=== PATIENT | female | born 1990 | race Hispanic/Latino ===

== ENCOUNTER 2023-10-30 11:03 | Emergency (ER) | payer OTHER, SELFPAY ==
[2023-10-30 11:05] VITALS: BP 124/89
--- NOTE | 2023-10-30 11:20 | ED.GENMED ---
History of Present Illness
General
Chief Complaint: Abdominal Symptoms
Time Seen by Provider: 10/30/23 11:20
Travel History
Have you had any contact with someone who has COVID-19?: No
Do you have any symptoms of coronavirus? Fever > 100 degrees, chills, cough, shortness of breath, sore throat, loss of taste or smell, muscle aches, or headache?: No
History of Present Illness
History of Present Illness:
HPI: Patient presents with abdominal pain sent from urgent care. She has had nausea and vomiting for the past week. She has a history of sleeve gastrectomy in 2017. She did try some Zofran recently given to her by her bariatric surgeon. She was
recently on semaglutide and states that the doctor gave her 1 mg of 0.25 mg dose. It was used instead of Zepbound as there apparently is a national shortage Zepbound.
EXAM:
GENERAL: Well appearing in no distress
HEENT: Moist oral mucosa
CARDIOVASCULAR: No murmurs, normal heart rate, regular rhythm, No chest wall tenderness
PULMONARY: No respiratory distress, breath sounds are clear and equal
ABDOMEN: Soft with no peritoneal signs, mild upper abdominal tenderness, no significant lower tenderness
NEUROLOGIC: Excellent strength all extremities, no coordination deficits
PSYCHIATRIC: Appropriate mental status, normal insight and judgement
EXTREMITIES: Nontender, no edema, moves all extremities equally
SKIN: No rash, no lesions
TIME OF INITIAL ENCOUNTER: 11:30 AM
NUMBER AND COMPLEXITY OF PROBLEMS ADDRESSED AT THE ENCOUNTER
� Chronic conditions affecting care: Anxiety, has had gastrectomy
� Acute Exacerbation and/or Progression of Chronic Illness: This is an acute problem
� Differential Diagnosis includes: Medication related side effect, bowel obstruction, appendicitis, cholecystitis
AMOUNT AND/OR COMPLEXITY OF DATA TO BE REVIEWED AND ANALYZED
� I performed an independent evaluation of and my interpretation is:
EKG:
CT: Personally reviewed CT imaging and agree with radiologist interpretation, there is no bowel obstruction normal appendix visualized
X-rays:
Laboratory Studies: White count hemoglobin normal, chemistries unremarkable including LFTs and lipase, hCG negative, urinalysis without evidence for
Other:
� Review of other/old records: No old records available for review
� Clinical information was obtained by an independent historian: None needed
� Prescriptions/Medications Considered but not given:
� Further testing considered but not performed:
RISK OF COMPLICATIONS AND/OR MORBIDITY OR MORTALITY OF PATIENT MANAGEMENT
� Social determinants of health affecting care: Lives at home
� Discussion with other providers:
� Escalation of care including admission/observation vs risk of discharge considered: The patient was given IV fluids, Pepcid, and Zofran. CT imaging shows no clear acute findings including no sign of bowel obstruction there is
no sign of appendicitis. On reassessment at 1:50 PM, the patient appears fairly comfortable. She is already taking Pepcid and omeprazole as outpatient. She already has Zofran. I also gave her contact information for GI and I informed her of the
IUD was atypical position and recommended she use an alternate form of control until reviewed by gynecology.
Phy Exam
Physical Exam
Physical Exam:
See HPI
Course
Orders/Labs/Results
Orders:
Orders
10/30/23 11:21
Add On- LAB Urgent
Tests Added?: hcg serum screen
10/30/23 11:25
Iohexol [Omnipaque] See Protocol PO NOW STA
10/30/23 11:26
CT Abd/pel W Iv And Oral Contr Urgent
Comment:
Reason For Exam: upper / right, h/o sleeve gastrectomy
10/30/23 11:27
0.9% Sodium Chloride 1000 ml [Nss] 1,000 ml IV BOLUS
Famotidine [Pepcid] 20 mg IV NOW STA
Ondansetron Injectable [Zofran] 4 mg IV NOW STA
10/30/23 11:28
Complete Blood Count/With Diff Urgent
Comprehensive Metabolic Panel Urgent
HCG, Serum Qualitative Screen Urgent
Comment: ADD ON
Lipase Urgent
10/30/23 11:47
Urine Culture Reflexed from UA [Urinalysis Reflex To Culture] Urgent
Date Specimen was Collected: 10/30/23
Time Specimen was Collected: 11:10
Urine Microscopic Reflex Cult Urgent
Urine Culture Urgent
TAL Source: U
Specimen Description:
Date Specimen was Collected: 10/30/23
Time Specimen was Collected: 11:10
Abnormal Lab Results
10/30/23 10/30/23
11:28 11:47
Absolute Neuts (auto) 6.9 H 10^3/uL
(1.4-6.5)
Sodium 132 L mmol/L
(135-145)
Chloride 94 L mmol/L
(98-107)
Urine Ketones 1+ A
(Negative)
Leukocyte Esterase Rfl 1+ A
(Negative)
10/30/23 11:28
10/30/23 11:28
Vital Signs
Initial and Last Documented VS:
Initial Vital Signs
Temp Pulse Resp BP Pulse Ox
98.3 F 83 20 124/89 94
10/30/23 11:05 10/30/23 11:05 10/30/23 11:05 10/30/23 11:05 10/30/23 11:05
Last Documented Vital Signs
Temp Pulse Resp BP Pulse Ox
98.3 F 83 20 124/89 94
10/30/23 11:05 10/30/23 11:05 10/30/23 11:05 10/30/23 11:05 10/30/23 11:05
*Critical Care Note
Total Time (30-74mins, 75-104mins- exclusive of procedures): Not Applicable
ED Attending Note
-
Portions of this chart may have been created with voice recognition software.� Occasional wrong word or��sound alike� substitutions may have occurred due to the inherent limitations of voice recognition software.
Discharge Plan
Departure
Patient Disposition: Home (Routine Discharge)
Date of Disposition: 10/30/23
Time of Disposition: 13:48
Patient with high blood pressure during this ER visit?: Yes
Discharge Problem:
Abdominal pain
Instructions: Abdominal Pain
Referrals:
Alison Prado MD [Family Provider] -
Anastasiya Garcia MD [Active] - Follow up in 2-3 days
Activity Restrictions/Additional Instructions:
White blood cell count is normal, testing is negative, liver numbers and pancreas numbers are both normal, renal function is normal. Urinalysis does not show any clear sign for infection. CT imaging shows a normal gallbladder, a tiny
right lower lobe of the liver area of most likely a cyst�this would not be the cause of your pain. IUD shows left-sided ovarian cyst measuring 1.2 cm (small). In the uterus the IUD has 'a somewhat atypical configuration, with a T oriented towards
the lower uterine segment rather than fundus'�I recommend you follow-up with your opthalmic tech. I have also given the contact information for local GI doctor, Dr. Garcia.
Interventions
Interventions:
*Risk Screen - Suicide Last Done: 10/30/23 11:05
*General Assessment Last Done: 10/30/23 11:05
ED- Fall Risk Assessment Last Done: 10/30/23 11:23
[facility] Assessment Last Done: 10/30/23 11:23
Discharge Date and Time
Print Language: SAMI
[2023-10-30 11:22] VITALS: BMI 29.6
[2023-10-30] MEDS: OMNIPAQUE 50 ML PO (11:34)
[2023-10-30] MEDS: NSS 1000 IV (11:34)
[2023-10-30] MEDS: PEPCID 20 MG IV (11:34)
[2023-10-30] MEDS: ZOFRAN 4 MG IV (11:34)
[2023-10-30 11:47] LABS: % Basophils 0.7 % (0-2); % Immature Granulocytes 0.4 % (0-0.5); % Lymphocytes 22.6 % (20.5-51.1); % Monocytes 6.1 % (1.7-9.3); % Neutrophils 69.2 % (42.2-75.2); Absolute Basophils 0.1 10^3/uL (0-0.2); Absolute Eosinophils 0.1 10^3/uL (0-0.7); Absolute Lymphocytes 2.3 10^3/uL (1.2-3.4); Absolute Monocytes 0.6 10^3/uL (0.1-0.6); Absolute Neutrophils 6.9 10^3/uL (1.4-6.5); Hematocrit 44.6 % (37.0-47.0); Hemoglobin 15.1 g/dL (12.0-16.0); Mean Corp Hgb Conc. 33.9 g/dL (33.0-37.0); Mean Corpuscular Hgb 28.2 pg (27.0-31.0); Mean Corpuscular Volume 83.2 fL (81.0-99.0); Mean Platelet Volume 9.5 fL (7.4-10.4); Nucleated Red Blood Cells % 0 %; Platelet Count 275 10^3/uL (130-400); Red Blood Cell Count 5.36 10^6/uL (4.20-5.40); Red Cell Dist. Width 12.4 % (11.5-14.5)
[2023-10-30 11:50] LABS: HCG, Serum Qualitative Screen Negative
[2023-10-30 12:00] LABS: ALT (SGPT) 16 U/L (0-35); AST (SGOT) 23 U/L (14-36); Albumin 4.6 g/dl (3.5-5.0); Alkaline Phosphatase 64 U/L (38-126); Blood Urea Nitrogen 10 mg/dl (7-17); Calcium 9.7 mg/dl (8.4-10.2); Carbon Dioxide 27 mmol/L (22-30); Chloride 94 mmol/L (98-107); Estimated Creatinine Clearance 122 ml/min; Glucose 96 mg/dl (70-99); Lipase 73 U/L (23-300); Potassium 4.1 mmol/L (3.5-5.1); Sodium 132 mmol/L (135-145); Total Bilirubin 0.8 mg/dl (0.2-1.3); Total Protein 7.7 g/dl (6.3-8.2); eGFR > 60.00
[2023-10-30 12:05] LABS: Urine Albumin Negative (Neg - Trace); Urine Bilirubin Negative (Negative); Urine Character Clear (Clear); Urine Color Yellow; Urine Glucose Negative (Negative); Urine Ketone 1+ (Negative); Urine Leukocyte 1+ (Negative); Urine Nitrite Negative (Negative); Urine Occult Blood Negative (Negative); Urine Urobilinogen Negative (Neg - 1+); Urine pH 6.5 (5.0-9.0)
[2023-10-30 12:19] LABS: Urine Squamous Cell >30 /LPF (Few)
[2023-10-30 12:20] LABS: Urine Red Blood Cell 0-2 /HPF (0-2)
== END 2023-10-30 14:00 | disposition home or self-care (01) ==
LOC: EMR 11:03
PROVIDERS: EMERGENCY PHYSICIAN Emergency Medicine; FAMILY PHYSICIAN Family Medicine
DX: R10.9 Unspecified abdominal pain (principal); R03.0 Elevated blood-pressure reading, without diagnosis of hypertension
CPT/HCPCS: 99285; 96374; 96375; 96361; 74177; 80053; 81003; 81015; 83690; 84703; 85025; 87086; Q9967

== ENCOUNTER 2024-10-02 09:13 | Emergency (ER) | payer BC, SELFPAY ==
[2024-10-02 09:16] VITALS: BP 122/81
--- NOTE | 2024-10-02 10:02 | ED.GENMED ---
History of Present Illness
General
Chief Complaint: Musculo-Skeletal Complaint
Source: patient
Time Seen by Provider: 10/02/24 09:51
History of Present Illness
History of Present Illness:
33-year-old female presents emergency room complaining of pain of the outside of her right foot. Patient slipped on wet grass while at a resort in the [facility] [place] 4 days ago. She immediately developed pain in the right foot. She was having
difficulty walking on it. She sought some care there at the resort and she was given a walking stick and an Charlie bandage. She denies any other injuries. Patient has been taking Tylenol for pain. She has been told not to take NSAIDs due to having
gastric sleeve procedure.
Phy Exam
Physical Exam
Physical Exam:
General: Awake, Alert, Oriented X3. No acute distress.
Vitals: unremarkable
Head: Atraumatic
Eyes: Pupils equal, EOMI
Neuro: Nonfocal
Skin: Warm, dry, no rash
Extremities: pulses equal b/l, swelling noted right foot particular lateral aspect. Tender to palpation along the proximal fifth metatarsal. No tenderness palpation over the medial or lateral malleolus. Range of motion intact of the digits.
Sensation intact.
Course
Orders/Labs/Results
Orders:
Orders
10/02/24 09:21
CR Foot - Right Min 3 Views Urgent
Comment:
Reason For Exam: pain , injury
10/02/24 09:59
Splints/Slings/Crut- Treatment ONCE
Crutches: Yes
Location: Right
Type of Splint: Short Leg
Vital Signs
Initial and Last Documented VS:
Initial Vital Signs
Temp Pulse Resp BP Pulse Ox
98.4 F 71 16 122/81 100
10/02/24 09:16 10/02/24 09:16 10/02/24 09:16 10/02/24 09:16 10/02/24 09:16
Last Documented Vital Signs
Temp Pulse Resp BP Pulse Ox
98.4 F 71 16 122/81 100
10/02/24 09:16 10/02/24 09:16 10/02/24 09:16 10/02/24 09:16 10/02/24 09:16
MDM/Problems Addressed
Differential Diagnosis Includes:
Fifth metatarsal fracture, foot sprain,
MDM/Problems Addressed:
Imaging confirms the presence of a fracture at the base of the fifth metatarsal. We will place her in a splint and provide crutches so that she can be nonweightbearing until she follows up with podiatry/Ortho. The location of this fracture seems
low risk for complication but we will keep her nonweightbearing until she follows up. Of note the patient has been ambulating since Thursday.
*Radiology
Radiology exam reviewed: preliminary read by ED provider (Fracture of the base of the fifth metatarsal on my review of the x-ray)
*Pulse Oximetry
Patient hypoxic: no
*Critical Care Note
Total Time (30-74mins, 75-104mins- exclusive of procedures): Not Applicable
ED Attending Note
-
Portions of this chart may have been created with voice recognition software.� Occasional wrong word or��sound alike� substitutions may have occurred due to the inherent limitations of voice recognition software.
Discharge Plan
Departure
Patient Disposition: Home (Routine Discharge)
Date of Disposition: 10/02/24
Time of Disposition: 10:02
Patient with high blood pressure during this ER visit?: No
Condition: Good
Discharge Problem:
Fracture of fifth metatarsal bone of right foot
Instructions: Splint Care, Foot Fracture ED, How to use crutches
Prescriptions:
New
oxycodone 5 mg tablet
5 mg PO Q6H PRN (Reason: Pain) Qty: 12 0RF
Referrals:
Alison Prado MD [Family Provider] -
Massimo Powers DPM [Active] -
Discharge Date and Time
Print Language: [place]
== END 2024-10-02 10:41 | disposition home or self-care (01) ==
LOC: EMR 09:13
PROVIDERS: EMERGENCY PHYSICIAN Emergency Medicine; FAMILY PHYSICIAN Family Medicine
DX: S92.354A Nondisplaced fracture of fifth metatarsal bone, right foot, initial encounter for closed fracture (principal); X50.1XXA Overexertion from prolonged static or awkward postures, initial encounter; Y92.89 Other specified places as the place of occurrence of the external cause; Z98.84 Bariatric surgery status
CPT/HCPCS: 99283; 29515; 73630

== ENCOUNTER → 2024-10-08 09:48 | Outpatient (REF) | payer BC, SELFPAY ==
[2024-10-08 11:11] LABS: % Basophils 1.1 % (0-2); % Eosinophils 9.2 % (0-6); % Lymphocytes 32.5 % (20.5-51.1); % Monocytes 6.1 % (1.7-9.3); % Neutrophils 51.1 % (42.2-75.2); Absolute Basophils 0.1 10^3/uL (0-0.2); Absolute Eosinophils 0.5 10^3/uL (0-0.7); Absolute Lymphocytes 1.8 10^3/uL (1.2-3.4); Absolute Monocytes 0.3 10^3/uL (0.1-0.6); Absolute Neutrophils 2.8 10^3/uL (1.4-6.5); Hematocrit 39.4 % (37.0-47.0); Hemoglobin 13.2 g/dL (12.0-16.0); Mean Corp Hgb Conc. 33.5 g/dL (33.0-37.0); Mean Corpuscular Hgb 29.3 pg (27.0-31.0); Mean Corpuscular Volume 87.6 fL (81.0-99.0); Mean Platelet Volume 10.5 fL (7.4-10.4); Nucleated Red Blood Cells % 0 %; Platelet Count 210 10^3/uL (130-400); Red Cell Dist. Width 14.2 % (11.5-14.5); White Blood Cell Count 5.4 10^3/uL (4.8-10.8)
[2024-10-08 11:37] LABS: Blood Urea Nitrogen 19 mg/dl (7-17); Calcium 9.6 mg/dl (8.4-10.2); Carbon Dioxide 29 mmol/L (22-30); Chloride 108 mmol/L (98-107); Glucose 81 mg/dl (70-99); Potassium 4.8 mmol/L (3.5-5.1); Sodium 141 mmol/L (135-145); eGFR > 60.00
== END ==
LOC: RCS 09:48
PROVIDERS: ATTENDING PHYSICIAN Student in an Organized Health Care Education/Training Program
DX: Z01.818 Encounter for other preprocedural examination (principal)
CPT/HCPCS: 36415; 80048; 85025; 93005